=== PATIENT | female | born 1990 | race Two or more races ===

== ENCOUNTER 2024-09-18 14:15 | Emergency (ER) | payer OTHER ==
[~2024-09-18] VITALS: Ht 162.6 cm; Wt 99.8 kg
[2024-09-18] MEDS ORDERED: ADDERALL 20 MG20 MG (14:41)
[2024-09-18] MEDS ORDERED: KETOROLAC TROMETHAMINE 15 MG VIAL IM STA (15:47)
[2024-09-18] MEDS ORDERED: ORPHENADRINE CITRATE 30 MG/ML AMPUL IM STA (15:48)
[2024-09-18] MEDS ORDERED: KETOROLAC TROMETHAMINE 30 MG VIAL ONE (16:20)
[2024-09-18] MEDS ORDERED: ORPHENADRINE CITRATE 30 MG/ML AMPUL ONE (16:20)
[2024-09-18] MEDS ORDERED: DEXAMETHASONE4 MG PO (17:45)
[2024-09-18] MEDS ORDERED: KETO10TA2 PO (17:46)
== END 2024-09-18 18:34 | disposition home or self-care (01) ==
LOC: ER 14:16
DX: G43.909 Migraine, unspecified, not intractable, without status migrainosus (principal); M54.9 Dorsalgia, unspecified; Z88.5 Allergy status to narcotic agent; Z88.6 Allergy status to analgesic agent